=== PATIENT | female | born 1965 | race African-American/Black ===

== ENCOUNTER 2017-03-11 13:21 | Emergency (ER) | payer MEDICAID ==
[~2017-03-11] VITALS: Ht 165.1 cm; Wt 81.6 kg
[~2017-03-11 13:21] MED LIST: ATENOLOL50 MG ORAL; DILANTIN100 MG ORAL
[2017-03-11 13:31] VITALS: BP 152/88
--- NOTE | 2017-03-11 13:39 | Emergency Room Report ---
History of Present Illness General Chief Complaint: Medical Clearance Source: Patient Present Illness HPI 52 YO Female presents to the ED for medical clearance for incarceration. PT has no complaints at this time. states she has not had a seizure in over a year , and she has not taken Dilantin for over 1 month. pt. reports running out of her Atenolol x 1 week. she denies headache denies, nausea, vomiting, fevers, or chills. Denies CP, Palpitations, LOC, AMS, dizziness, Changes in Vision, Sensation, paresthesias, or a sudden severe headache. Allergies: Coded Allergies: NO KNOWN ALLERGIES (Unverified Allergy, Unknown, 09/25/15) Patient History Past Medical History: see triage record Past Surgical History: none Pertinent Family History: none Now: No Immunizations: UTD Reviewed Nursing Documentation: PMH: Agreed, PSxH: Agreed Nursing Documentation-PMH Hx Hypertension: Yes Hx Seizures: Yes Review of Systems All Other Systems: negative except mentioned in HPI Physical Exam Vital Signs Date Time Temp Pulse Resp B/P Pulse Ox O2 Delivery O2 Flow Rate FiO2 03/11/17 13:24 97.9 86 15 152/88 99 Room Air Sp02 EP Interpretation: reviewed, abnormal - elevated BP General Appearance: no apparent distress, alert, GCS 15, non-toxic Head: normocephalic, atraumatic Eyes: bilateral eye PERRL, bilateral eye normal inspection ENT: hearing grossly normal, normal pharynx, no angioedema, normal voice Neck: full range of motion, supple/symm/no masses Respiratory: lungs clear, normal breath sounds, speaking full sentences Cardiovascular #1: regular rate, rhythm, no edema Musculoskeletal: back normal, gait/station normal, normal range of motion, non- tender Neurologic: alert, oriented x3, responsive, motor strength/tone normal, sensory intact, speech normal Psychiatric: judgement/insight normal, memory normal, mood/affect normal Skin: normal color, no rash, warm/dry, well hydrated Medical Decision Making PA Attestation Dr. Sr is my supervising Physician whom patient management has been discussed with. Diagnostic Impression: Primary Impression: Medical clearance for incarceration Additional Impressions: History of seizures History of hypertension ER Course Pt. presents to the ED for medical clearance for incarceration. PT has no complaints at this time. states she has not had a seizure in over a year, and she has not taken Dilantin for over 1 month. pt. reports running out of her Atenolol x 1 week. Ddx considered but are not limited to Head Trauma, [place], ACS, SI/HI, URI, SAH, Fractures, Dislocations, Tazer barbs, Abrasions. Vital signs: are WNL, pt. is afebrile H&PE are most consistent with: normal limited physical examination. ORDERS: none required at this time, the diagnosis is clinical ED INTERVENTIONS: None required at this time. DISCHARGE: At this time pt. is stable for d/c to law enforcement. Will provide printed patient care instructions, and any necessary prescriptions. Care plan and follow up instructions have been discussed with the patient prior to discharge. Last Vital Signs Date Time Temp Pulse Resp B/P Pulse Ox O2 Delivery O2 Flow Rate FiO2 03/11/17 13:31 97.9 15 152/88 99 Room Air 03/11/17 13:24 86 Disposition: D/C TO [facility] IN [facility] Condition: Stable Scripts Atenolol* (TENORMIN*) 50 Mg Tablet 50 MG ORAL DAILY for 30 Days, #30 TAB Prov: Vilma Staley 03/11/17 Departure Forms: [facility] Clearance Patient Instructions: Medical Screening Exam Additional Instructions: Take medications as directed. Follow up with PCP in 3-5 days Return sooner to ED if new symptoms occur, or current symptoms become worse. - Please note that this Emergency Department Report was dictated using [email or web address] operator technology software, occasionally this can lead to erroneous entry secondary to interpretation by the dictation equipment. Vilma Staley Mar 11, 2017 13:39
[2017-03-11] MEDS ORDERED: ATENOLOL50 MG ORAL (13:40)
[2017-03-11 13:45] VITALS: BP 152/88
== END 2017-03-11 13:45 ==
LOC: EMR 13:30
DX: G40.909 Epilepsy, unspecified, not intractable, without status epilepticus (principal); I10 Essential (primary) hypertension; Z91.19 Patient's noncompliance with other medical treatment and regimen
CPT/HCPCS: 99283

== ENCOUNTER 2019-01-29 22:19 | Emergency (ER) | payer MEDICAID, OTHER ==
[~2019-01-29] VITALS: Ht 165.1 cm; Wt 65.8 kg
--- NOTE | 2019-01-29 22:34 | NUR ---
ED Nurse Note: Pt feels dizzy since last night and Pt needs some meds refill. Pt is AO x 4times, VSS, on room air no distress, ERMD seen Pt at bedside.
[2019-01-29 22:35] VITALS: BP 119/80
--- NOTE | 2019-01-29 23:13 | Emergency Room Report ---
History of Present Illness General Chief Complaint: Medication Refill Source: Patient Present Illness HPI Patient presents with multiple complaints. She's complaining about weakness, increased pain due to neuropathy and running out of her medications and also paranoia. She denies suicidal or homicidal ideation. She says his been several days and she's been taking her medications. She is requesting Dilantin and Elavil and some pain pills. She denies fevers or chills. She's complaining about weakness that is generalized. She's not had any vomiting or diarrhea. She does complain about some dysuria. She states she is going into rehab tomorrow. Allergies: Coded Allergies: NO KNOWN ALLERGIES (Unverified Allergy, Unknown, 09/25/15) Patient History Past Medical History: see triage record Social History: Reports: smoking, drug use Social History Narrative from home Last Menstrual Period: Jan 08 2019 Now: No Reviewed Nursing Documentation: PMH: Agreed; PSxH: Agreed Nursing Documentation-PMH Hx Hypertension: Yes History Of Psychiatric Problem: Yes - Bipolar Hx Seizures: Yes Review of Systems All Other Systems: negative except mentioned in HPI Physical Exam Vital Signs Date Time Temp Pulse Resp B/P (MAP) Pulse Ox O2 Delivery O2 Flow Rate FiO2 01/29/19 22:27 98.1 68 18 98 Room Air 01/29/19 22:35 119/80 Sp02 EP Interpretation: reviewed, normal General Appearance: well appearing, no apparent distress, GCS 15 Head: normocephalic Eyes: bilateral eye PERRL, bilateral eye Scleral Injection ENT: moist mucus membranes Neck: supple Respiratory: lungs clear, normal breath sounds Cardiovascular #1: regular rate, rhythm Cardiovascular #2: 2+ radial (R) Gastrointestinal: normal inspection, normal bowel sounds, non tender, no mass, non-distended Musculoskeletal: back normal, gait/station normal, normal range of motion Neurologic: alert, oriented x3, grossly normal Psychiatric: no suicidal/homicidal ideation, depressed affect Skin: normal inspection, warm/dry Medical Decision Making Diagnostic Impression: Primary Impression: Non compliance w medication regimen Additional Impression: Cocaine abuse ER Course Patient presents with multiple complaints. Mainly she's noncompliant with her medications at this time. However because of the weakness we need to evaluate her with EKG, chest x-ray and labs including a Dilantin level. Based on results we will treat her as needed. We will give her Tylenol for pain. Labs with negative Dilantin. + Cocaine. Minimal leukocytosis. Patient rested and ate. Ambulatory. Patient improved and stable for outpatient observation and treatment. Laboratory Tests Test 01/29/19 23:20 01/29/19 23:45 Urine Color Pale yellow Urine Appearance Clear Urine pH 5 (4.5-8.0) Urine Specific [place] 1.005 (1.005-1.035) Urine Protein Negative (NEGATIVE) Urine Glucose (UA) Negative (NEGATIVE) Urine Ketones Negative (NEGATIVE) Urine Blood 1+ (NEGATIVE) H Urine Nitrite Negative (NEGATIVE) Urine Bilirubin Negative (NEGATIVE) Urine Urobilinogen Normal MG/DL (0.0-1.0) Urine Leukocyte Esterase Negative (NEGATIVE) Urine RBC 0-2 /HPF (0 - 2) Urine WBC 0-2 /HPF (0 - 2) Urine Squamous Epithelial Cells Few /LPF (NONE/OCC) Urine Bacteria Occasional /HPF (NONE) Urine Opiates Screen Negative (NEGATIVE) Urine Barbiturates Screen Negative (NEGATIVE) Phencyclidine (PCP) Screen Negative (NEGATIVE) Urine Amphetamines Screen Negative (NEGATIVE) Urine Benzodiazepines Screen Negative (NEGATIVE) Urine Cocaine Screen Positive (NEGATIVE) H Urine Marijuana (THC) Screen Positive (NEGATIVE) H White Blood Count 11.3 K/UL (4.8-10.8) H Red Blood Count 4.24 M/UL (4.20-5.40) Hemoglobin 14.4 G/DL (12.0-16.0) Hematocrit 40.7 % (37.0-47.0) Mean Corpuscular Volume 96 FL (80-99) Mean Corpuscular Hemoglobin 33.9 PG (27.0-31.0) H Mean Corpuscular Hemoglobin Concent 35.3 G/DL (32.0-36.0) Red Cell Distribution Width 11.3 % (11.6-14.8) L Platelet Count 279 K/UL (150-450) Mean Platelet Volume 6.3 FL (6.5-10.1) L Neutrophils (%) (Auto) 63.1 % (45.0-75.0) Lymphocytes (%) (Auto) 28.6 % (20.0-45.0) Monocytes (%) (Auto) 5.3 % (1.0-10.0) Eosinophils (%) (Auto) 1.6 % (0.0-3.0) Basophils (%) (Auto) 1.5 % (0.0-2.0) Sodium Level 136 MMOL/L (136-145) Potassium Level 4.5 MMOL/L (3.5-5.1) Chloride Level 99 MMOL/L (98-107) Carbon Dioxide Level 26 MMOL/L (21-32) Anion Gap 11 mmol/L (5-15) Blood Urea Nitrogen 13 mg/dL (7-18) Creatinine 0.8 MG/DL (0.55-1.30) Estimate Glomerular Filtration Rate > 60 mL/min (>60) Glucose Level 71 MG/DL (74-106) L Calcium Level 10.1 MG/DL (8.5-10.1) Total Bilirubin 0.5 MG/DL (0.2-1.0) Aspartate Amino Transferase (AST) 48 U/L (15-37) H Alanine Aminotransferase (ALT) 26 U/L (12-78) Alkaline Phosphatase 77 U/L (46-116) Total Creatine Kinase 301 U/L (26-308) Total Protein 8.8 G/DL (6.4-8.2) H Albumin 4.3 G/DL (3.4-5.0) Globulin 4.5 g/dL Albumin/Globulin Ratio 1.0 (1.0-2.7) Salicylates Level 3.1 ug/mL (2.8-20) Acetaminophen Level < 2 MCG/ML (10-30) L Phenytoin (Dilantin) Level < 0.5 ug/mL (10-20) L Serum Alcohol 5 mg/dL EKG Diagnostic Results Rate: normal Rhythm: NSR ST Segments: no acute changes - RBBB Rhythm Strip Diag. Results EP Interpretation: yes Rhythm: NSR, no PVC's, no ectopy Last Vital Signs Date Time Temp Pulse Resp B/P (MAP) Pulse Ox O2 Delivery O2 Flow Rate FiO2 01/30/19 03:10 97.9 61 18 143/77 99 Room Air Status: improved Disposition: HOME, SELF-CARE Condition: Improved Scripts Acetaminophen (Tylenol) 325 Mg Tablet 650 MG ORAL Q6H PRN for Prn Pain/Headache/Temp > 101, #20 TAB 0 Refills Prov: Zhou Zhou MD 01/30/19 Atenolol* (TENORMIN*) 50 Mg Tablet 50 MG ORAL DAILY, #7 TAB Prov: Zhou Zhou MD 01/30/19 Amitriptyline HCl (ELAVIL*) 25 Mg Tablet 25 MG ORAL BEDTIME, #7 TAB Prov: Zhou Zhou MD 01/30/19 Phenytoin Sodium Extended* (DILANTIN*) 100 Mg Capsule 300 MG ORAL BEDTIME, #21 CAP Prov: Zhou Zhou MD 01/30/19 Referrals: [facility],REFERRING (PCP) Zhou Zhou MD January 29, 2019 23:13
[2019-01-29 23:35] LABS: APPEARANCE,URINE CLEAR; BILIRUBIN, URINE NEGATIVE (NEGATIVE); COLOR,URINE PALE YELLOW; GLUCOSE, URINE (UA) NEGATIVE (NEGATIVE); KETONES,URINE NEGATIVE (NEGATIVE); LEUKOCYTE ESTERASE ,URINE NEGATIVE (NEGATIVE); NITRITE,URINE NEGATIVE (NEGATIVE); PH,URINE 5 (4.5-8.0); PROTEIN,URINE NEGATIVE (NEGATIVE); UROBILINOGEN,URINE NORMAL MG/DL (0.0-1.0)
--- NOTE | 2019-01-29 23:49 | NUR ---
ED Nurse Note: Labs drawn, sent to lab
[2019-01-29 23:58] LABS: BASOPHILS % (AUTO) 1.5 % (0.0-2.0); EOSINOPHILS % (AUTO) 1.6 % (0.0-3.0); HEMATOCRIT 40.7 % (37.0-47.0); HEMOGLOBIN 14.4 G/DL (12.0-16.0); LYMPHOCYTES % (AUTO) 28.6 % (20.0-45.0); MEAN CORPUSCULAR VOLUME 96 FL (80-99); MONOCYTES % (AUTO) 5.3 % (1.0-10.0); NEUTROPHILS % (AUTO) 63.1 % (45.0-75.0); PLATELET COUNT 279 K/UL (150-450); RED BLOOD COUNT 4.24 M/UL (4.20-5.40); RED CELL DISTRIBUTION WIDTH 11.3 % (11.6-14.8); WHITE BLOOD COUNT 11.3 K/UL (4.8-10.8)
[2019-01-30 00:13] LABS: ANION GAP 11 mmol/L (5-15); BLOOD UREA NITROGEN 13 mg/dL (7-18); CALCIUM 10.1 MG/DL (8.5-10.1); CARBON DIOXIDE 26 MMOL/L (21-32); CHLORIDE 99 MMOL/L (98-107); CREATININE 0.8 MG/DL (0.55-1.30); POTASSIUM 4.5 MMOL/L (3.5-5.1); SODIUM 136 MMOL/L (136-145)
[2019-01-30 00:17] LABS: ALANINE AMINOTRANSFERASE 26 U/L (12-78); ALBUMIN 4.3 G/DL (3.4-5.0); ALKALINE PHOSPHATASE 77 U/L (46-116); ASPARTATE AMINO TRANSFERASE 48 U/L (15-37); BILIRUBIN,TOTAL 0.5 MG/DL (0.2-1.0); CREATINE KINASE 301 U/L (26-308)
[2019-01-30] MEDS ORDERED: LANTUS SOL100 UNIT/1 SUBQ (00:39)
[2019-01-30] MEDS ORDERED: NORVASC10 MG ORAL (00:39)
[2019-01-30] MEDS ORDERED: PLAVIX75 MG ORAL (00:39)
[2019-01-30] MEDS ORDERED: TRADJENTA5 MG PO (00:39)
[2019-01-30] MEDS ORDERED: LOSARTAN POTAS100 MG ORAL (00:39)
[2019-01-30] MEDS ORDERED: Phenytoin 100mg cap ORAL ONE (01:15)
--- NOTE | 2019-01-30 01:30 | NUR ---
ED Nurse Note: Pt resting comfortably. Showing no signs of distress. VSS.
[2019-01-30] MEDS ORDERED: AMITRIPTYLINE25 MG ORAL (02:47)
[2019-01-30] MEDS ORDERED: ATENOLOL50 MG ORAL (02:47)
[2019-01-30] MEDS ORDERED: DILANTIN100 MG ORAL (02:47)
[2019-01-30] MEDS ORDERED: TYLENOL325 MG ORAL (02:48)
[2019-01-30 03:10] VITALS: BP 143/77
--- NOTE | 2019-01-30 03:10 | NUR ---
ED Nurse Note: Pt cleared by . Pt A/Ox4, showing no signs of acute distress. VSS. Discharge paperwork and prescriptions provided. Pt verbalized understanding of all instructions. ID band and IV removed. All belongings taken with patient.
== END 2019-01-30 03:10 | disposition home or self-care (01) ==
LOC: EMR 22:50
DX: F14.10 Cocaine abuse, uncomplicated (principal); Z91.14 Patient's other noncompliance with medication regimen; G62.9 Polyneuropathy, unspecified; G40.909 Epilepsy, unspecified, not intractable, without status epilepticus; I10 Essential (primary) hypertension; F17.200 Nicotine dependence, unspecified, uncomplicated; R30.0 Dysuria; F31.9 Bipolar disorder, unspecified; D72.829 Elevated white blood cell count, unspecified
CPT/HCPCS: 36415; 80053; 80185; 80307; 81003; 82550; 85025; 93005; 99284; G0480; J7040; 80329